=== PATIENT | male | born 1985 | race African-American/Black ===

== ENCOUNTER 2017-12-22 17:17 | Emergency (ER) | payer OTHER ==
[~2017-12-22] VITALS: Ht 175.3 cm; Wt 67.0 kg
[2017-12-22 17:19] VITALS: BP 130/84
== END 2017-12-22 18:37 | disposition home or self-care (01) ==
LOC: ER 17:17
DX: S90.512A Abrasion, left ankle, initial encounter (principal); F17.200 Nicotine dependence, unspecified, uncomplicated; W01.0XXA Fall on same level from slipping, tripping and stumbling without subsequent striking against object, initial encounter; Y93.89 Activity, other specified; Y92.89 Other specified places as the place of occurrence of the external cause; Y99.8 Other external cause status
CPT/HCPCS: 99281

== ENCOUNTER 2021-10-02 20:10 | Emergency (ER) | payer MEDICAID, OTHER ==
[~2021-10-02] VITALS: Ht 167.6 cm; Wt 72.0 kg
[2021-10-02] MEDS ORDERED: TETANUS, DIPHTHERIA, PERTUSSIS VAC/PF 0.5ML (>10YR OLD) IM ONE (21:45)
[2021-10-02] MEDS ORDERED: FLUORESCEIN SODIUM 1MG/STRIP LEFTEYE ONE (21:45)
[2021-10-02] MEDS ORDERED: TETRACAINE 0.5% OPHTH DROPS 4ML LEFTEYE ONE (21:45)
[2021-10-02] MEDS ORDERED: ACETAMINOPHEN 325MG TABLET PO ONE (21:45)
[2021-10-02] MEDS ORDERED: GUAIFENESIN 600MG ER TABLET PO ONE (22:45)
[2021-10-02] MEDS ORDERED: CLINDAMYCIN HCL 150MG CAPSULE PO ONE (22:45)
[2021-10-02 23:20] VITALS: BP 123/61
[2021-10-02 23:21] LABS: BASOPHILS % 0.5 % (0.0-2.0); EOSINOPHILS % 1.1 % (0.0-5.0); HEMATOCRIT. 38.7 % (42.0-52.0); HEMOGLOBIN. 13.3 g/dL (14.0-18.0); LYMPHOCYTES % 17.6 % (20.0-50.0); MEAN CORPUSCULAR HEMOGLOBIN 32.8 pg (28.0-32.0); MEAN CORPUSCULAR VOLUME 95.8 fL (80.0-94.0); MEAN PLATELET VOLUME 6.9 fl (7.4-10.4); MONOCYTES % 11.5 % (2.0-8.0); NEUTROPHILS % 69.3 % (40.0-76.0); PLATELET 290 x1000/uL (130-400); RED BLOOD CELL COUNT 4.04 mill/uL (4.7-6.1); RED CELL DISTRIBUTION WIDTH 13.1 % (11.6-14.6)
[2021-10-02 23:24] LABS: CHLORIDE 111 mEq/L (98-107)
== END 2021-10-02 23:30 | disposition left against medical advice (07) ==
LOC: ER 20:10
DX: S02.2XXA Fracture of nasal bones, initial encounter for closed fracture (principal); H05.821 Myopathy of extraocular muscles, right orbit; S05.12XA Contusion of eyeball and orbital tissues, left eye, initial encounter; Y04.2XXA Assault by strike against or bumped into by another person, initial encounter; Y93.89 Activity, other specified; Y92.89 Other specified places as the place of occurrence of the external cause; S00.511A Abrasion of lip, initial encounter
CPT/HCPCS: 36415; 70486; 80048; 85025; 90471; 90715; 99284

== ENCOUNTER 2025-01-16 22:17 | Emergency (ER) | payer MEDICAID, OTHER ==
[~2025-01-16] VITALS: Ht 167.6 cm; Wt 73.0 kg
[2025-01-16 22:39] VITALS: O2SAT 99
[2025-01-16 22:42] VITALS: BP 139/88; PULSE 90; RESP 17; TEMP 37.3; O2SAT 99
== END 2025-01-17 01:30 | disposition left against medical advice (07) ==
LOC: ER 22:17
DX: S81.811A Laceration without foreign body, right lower leg, initial encounter (principal); Z53.21 Procedure and treatment not carried out due to patient leaving prior to being seen by health care provider; X58.XXXA Exposure to other specified factors, initial encounter; Y93.89 Activity, other specified; Y92.89 Other specified places as the place of occurrence of the external cause; Y99.8 Other external cause status
CPT/HCPCS: 73630